=== PATIENT | male | born 1990 | race Caucasian/White ===

== ENCOUNTER 2022-08-31 01:37 | Emergency (ER) | payer MEDICAID ==
[~2022-08-31] VITALS: Ht 193 cm; Wt 89.0 kg
[2022-08-31 01:57] VITALS: BP 131/77
[2022-08-31] MEDS ORDERED: ONDANSETRON 4MG ODT PO ONE (03:30)
[2022-08-31] MEDS ORDERED: ONDA4TAB11 PO (03:36)
== END 2022-08-31 04:12 | disposition home or self-care (01) ==
LOC: ER 01:37
DX: R11.0 Nausea (principal)
CPT/HCPCS: 99283; Q0162